=== PATIENT | male | born 1950 | race Caucasian/White ===

== ENCOUNTER 2019-12-04 15:27 | Observation (INO) | payer MEDICARE, SELFPAY ==
[2019-12-04 15:35] VITALS: BP 141/68; PULSE 74; RESP 18; TEMP 37; O2SAT 97; BMI 21.2
[2019-12-04 16:08] LABS: Add Manual Diff / Slide Review NO; Basophils Absolute Auto 0 /uL (0-100); Basophils Percent Auto 0.3 % (0-2); Eosinophils Absolute Auto 0 /uL (0-450); Hematocrit 46.4 % (41-53); Lymphocytes Absolute Auto 700 /uL (1100-4500); Lymphocytes Percent Auto 4.9 % (25-40); Mean Corpuscular HGB Conc 34.4 % (30-36); Mean Corpuscular Volume 92.8 fL (80-100); Monocytes Absolute Auto 900 /uL (0-900); Monocytes Percent Auto 6.5 % (3-14); Neutrophils Absolute Auto 12000 /uL (1500-7000); Neutrophils Percent Auto 88.3 % (50-75); Platelet Count 193 X10^3/uL (150-400); Red Cell Distribution Width 13.8 % (11.6-14.8); White Blood Cell Count 13.6 X10^3/uL (4.5-11.0)
[2019-12-04 16:14] LABS: Prothrombin Time 11.4 SECONDS (10.1-12.7)
[2019-12-04 16:17] LABS: PTT Partial Thromboplastin Tim 29 SECONDS (26.4-36.2)
[2019-12-04 16:20] LABS: Alanine Aminotransferase 25 IU/L (<50); Albumin 4.8 g/dL (3.5-5.0); Albumin Globulin Ratio 1.6 (1.0-2.8); Alkaline Phosphatase 58 U/L (38-126); Aspartate Aminotransferase 31 IU/L (17-59); BUN Creatinine Ratio 20.6 (6-22); Bilirubin Total 1.3 mg/dL (0.2-1.3); Blood Urea Nitrogen 14 mg/dL (9-20); Calcium 10.3 mg/dL (8.4-10.2); Carbon Dioxide 23 mmol/L (22-32); Chloride 101 mmol/L (98-107); Estimated Glomerular Filt Rate > 60.0 mL/min (>60); Glucose 126 mg/dL (80-110); HEMOLYSIS < 15 (0-50); Lipase 47 U/L (23-300); Potassium 3.5 mmol/L (3.4-5.1); Sodium 134 mmol/L (137-145); Total Protein 7.8 g/dL (6.3-8.2)
--- NOTE | 2019-12-04 17:17 | ED.ABDPAIN ---
HPI - Abdominal Pain General Chief Complaint: Abdominal Pain Stated Complaint: abdominal pain, nausea Time Seen by Provider: 12/04/19 17:05 Source: patient Mode of arrival: Family Vehicle Limitations: no limitations History of Present Illness HPI narrative: Patient is a 69-year-old male who presents with abdominal pain and vomiting. It started last night while he was camping. He has had some cramping all across his abdomen which radiates around to his back. He has vomited 3 times he is no longer passing gas and has not had a bowel movement. Family members have eaten the same food and no one else is having symptoms is he denies any fever chills chest pain dizziness or lightheadedness. MD complaint: abdominal pain Onset (ago): day(s) Pain Consistency: constant Location: diffuse Severity: mild Quality: cramping Radiation: none Migration to: no migration Related Data Allergies Allergy/AdvReac Type Severity Reaction Status Date / Time No Known Drug Allergies Allergy Verified 12/04/19 15:51 Review of Systems Review of Systems Narrative: GENERAL: Denies chills, fatigue, malaise, fever, sweats, travel HEENT: Denies sinus pain, ear pain, sore throat, difficulty swallowing, neck pain RESPIRATORY: Denies dyspnea, cough, wheezing, hemoptysis, sputum. CARDIOVASCULAR: Denies chest pain, palpitations, orthopnea, edema GASTROINTESTINAL: See HPI : Denies dysuria, frequency, incontinence, hematuria, urinary retention, flank pain. MUSCULOSKELETAL: Denies weakness, joint pain, or bony pain SKIN: No rash, no erythema, no pruritus NEUROLOGIC: Denies weakness, dizziness, headache, numbness, change in speech, confusion PSYCHIATRIC: No concerning psychosocial issues. 12 point review of systems is negative except for those stated above and HPI Patient History Social History Smoking Status: Never smoker Smoking Status: Never smoker alcohol intake frequency: 0-2 drinks per day Substance Use Type: does not use Exam Initial Vital Signs Initial Vital Signs: Vital Signs Temperature 98.6 F 12/04/19 15:35 Pulse Rate 74 12/04/19 15:35 Respiratory Rate 18 12/04/19 15:35 Blood Pressure 141/68 H 12/04/19 15:35 Pulse Oximetry 97 12/04/19 15:35 GENERAL: Well-appearing, well-nourished and in no acute distress. HEENT: Head atraumatic,EOMI, pupils reactive, face symmetric, moist mucous membranes CARDIOVASCULAR: Regular rate and rhythm without murmurs, rubs or gallops. RESPIRATORY: Breath sounds equal bilaterally, no wheezes rales or rhonchi. ABDOMEN: Soft, diffusely tender no localization decreased bowel sounds. No guarding or rebound. EXTREMITIES: Normal range of motion, no clubbing or edema. Neurovascularly intact NEUROLOGICAL: Alert and oriented x4.Normal gait and speech. SKIN: Warm, dry, no laceration, no petechiae, no rashes or lesions. Course Orders Ordered: ED Orders 12/04/19 15:52 EKG-12 Lead Stat 12/04/19 15:55 Complete Blood Count AUTO DIFF Stat Comprehensive Metabolic Panel Stat Lipase Stat Partial Thromboplastin Time Stat Prothrombin Time INR Stat 12/04/19 17:17 CT abdomen pelvis w con Stat Discontinued Medications Sodium Chloride (Normal Saline 0.9%) 1,000 mls @ 1,000 mls/hr IV BOLUS ONE Stop: 12/04/19 18:16 Last Admin: 12/04/19 17:41 Dose: 1,000 mls/hr Documented by: SURENDRA Ondansetron HCl (Zofran) 4 mg IV NOW ONE Stop: 12/04/19 17:18 Last Admin: 12/04/19 17:41 Dose: 4 mg Documented by: SURENDRA Vital Signs Vital signs: Vital Signs - 8 hr 12/04/19 15:35 Temperature 98.6 F Pulse Rate 74 Respiratory Rate 18 Blood Pressure 141/68 H Pulse Oximetry 97 MDM - Abdominal Pain Lab Data Attestation: I reviewed the patient's lab results. Result diagrams: 12/04/19 15:55 12/04/19 15:55 Labs: Lab Results 12/04/19 12/04/19 12/04/19 Range/Units 15:55 15:55 15:55 WBC 13.6 H (4.5-11.0) X10^3/uL RBC 5.00 (4.5-5.9) X10^6/uL Hgb 16.0 (13.5-17.5) g/dL Hct 46.4 (41-53) % MCV 92.8 (80-100) fL MCH 32.0 (26-34) PG MCHC 34.4 (30-36) % RDW 13.8 (11.6-14.8) % Plt Count 193 (150-400) X10^3/uL Neut % (Auto) 88.3 H (50-75) % Lymph % (Auto) 4.9 L (25-40) % [place] % (Auto) 6.5 (3-14) % Eos % (Auto) 0.0 L (2-4) % Baso % (Auto) 0.3 (0-2) % Neut # (Auto) 36981 H (0489-1714) /uL Lymph # (Auto) 700 L (2976-7199) /uL [place] # (Auto) 900 (0-900) /uL Eos # (Auto) 0 (0-450) /uL Baso # (Auto) 0 (0-100) /uL PT 11.4 (10.1-12.7) SECONDS INR 1.0 (0.9-1.3) APTT 29 (26.4-36.2) SECONDS Sodium 134 L (137-145) mmol/L Potassium 3.5 (3.4-5.1) mmol/L Chloride 101 (98-107) mmol/L Carbon Dioxide 23 (22-32) mmol/L BUN 14 (9-20) mg/dL Creatinine 0.68 (0.66-1.25) mg/dL Estimated GFR > 60.0 (>60) mL/min BUN/Creatinine Ratio 20.6 (6-22) Glucose 126 H (80-110) mg/dL Calcium 10.3 H (8.4-10.2) mg/dL Total Bilirubin 1.3 (0.2-1.3) mg/dL AST 31 (17-59) IU/L ALT 25 (<50) IU/L Alkaline Phosphatase 58 (38-126) U/L Total Protein 7.8 (6.3-8.2) g/dL Albumin 4.8 (3.5-5.0) g/dL Globulin 3.0 (1.7-4.1) g/dL Albumin/Globulin Ratio 1.6 (1.0-2.8) Lipase 47 (23-300) U/L Imaging Data CT scan - abdomen/pelvis: Radiologist's Impression: PROCEDURE: CT ABDOMEN PELVIS W CON INDICATIONS: ab pain with nausea TECHNIQUE: After the administration of intravenous contrast, 5 mm thick sections acquired from the diaphragm to the symphysis. 5 mm coronal and sagittal reformats were acquired. For radiation dose reduction, the following was used: automated exposure control, adjustment of mA and/or kV according to patient size. COMPARISON: None. FINDINGS: Image quality: There is streak artifact seen through the pelvis. ABDOMEN: Lung bases: Lung bases are clear. Heart size is normal. Solid organs: Liver is normal in size and enhancement. Gallbladder wall is not thickened. Biliary system is non dilated. Pancreas enhances normally. Spleen is normal in size and enhancement. No adrenal nodules. Kidneys demonstrate normal size and enhancement, without hydronephrosis. Peritoneum and bowel: Prominently dilated loops of fluid-filled small bowel are seen. The distal 10-20 cm of the small bowel appear relatively decompressed. The distal small bowel demonstrates wall thickening and hyper enhancement. There is apparent transition point seen within the right lower quadrant as on series 2, image 70 and on series 4, image 18 and on series 5, image 35. There is moderate free fluid seen layering within the pelvis. No free air or loculated fluid collection can be seen. Relatively prominent fluid can be seen within the proximal colon. Nodes and vessels: No retroperitoneal or mesenteric adenopathy by size criteria. Aorta and inferior vena cava are normal in size. Miscellaneous: No ventral hernias. PELVIS: Genitourinary: Bladder wall thickness is normal. Miscellaneous: No inguinal hernias or adenopathy. Bones: No suspicious bony lesions. No vertebral body compression fractures. Lower lumbar spine degenerative changes are seen. Milder degenerative changes are seen elsewhere. IMPRESSION: These imaging findings are most compatible with small bowel obstruction, with a transition point seen involving the distal small bowel within the right lower quadrant. Moderate free fluid is seen layering within the pelvis. No loculated abscess is seen. Dictated by: Ulysses Keller M.D. on 12/04/2019 at 16:52 Approved by: Ulysses Keller M.D. on 12/04/2019 at 16:58 ECG Data Attestation: I personally reviewed and interpreted this ECG as follows: Prior ECG tracings: not available for review Interpretation: Normal sinus rhythm rate 81 p.r. interval 184 QRS [address] changes no priors to compare MDM Narrative Medical decision making narrative: Patient is found to have a bowel obstruction on CT with a transition point. He is hemodynamically stable and appears comfortable and well. Dr. Diaz, surgery notified agrees with observation and NG tube Discharge Plan Departure Patient Disposition: Admitted as Observation Clinical Impression: Complete small bowel obstruction Admit Date/Time: 12/04/19 18:28 Admit Provider: Ginna Diaz
[2019-12-04] MEDS: ONDANSETRON 4 MG/2 ML INJ IV ×2 (17:41→18:59)
[2019-12-04] MEDS: SODIUM CHLORIDE 0.9% 1,000 ML 1000 ML IV (17:41)
--- NOTE | 2019-12-04 19:13 | PM.HP.1 ---
History of Present Illness History of Present Illness Date Patient Seen: 12/04/19 Time Patient Seen: 19:13 Chief complaint: abdominal pain, nausea Narrative: This is a 69 yo man with history of open prostatectomy in 2016, laparoscopic bilateral inguinal hernia repairs two years ago, complicated by a bladder injury which resolved with hernández catheter. He was camping with his family, and started having abdominal pain and nausea last night around 10PM. Today his pain got worse, and he vomited three times. He came into the ER where he had labs and a CT scan, which revealed an SBO. NGT was placed, with minimal serosanguinous output. His last BM or flatus was some time yesterday. He denies any significant medical history. He says he does not take any medications other than vitamins. He denies smoking, drinking, or using any illicit drugs. He denies any significant family history of gastrointestinal disorders, hypertension, or diabetes. He has had a prior colonoscopy, he says he is due for 1 now. ROS: GENERAL: Denies chills, fatigue, malaise, fever, sweats, travel HEENT: Denies sinus pain, ear pain, sore throat, difficulty swallowing, neck pain RESPIRATORY: Denies dyspnea, cough, wheezing, hemoptysis, sputum. CARDIOVASCULAR: Denies chest pain, palpitations, orthopnea, edema GASTROINTESTINAL: See HPI : Denies dysuria, frequency, incontinence, hematuria, urinary retention, flank pain. MUSCULOSKELETAL: Denies weakness, joint pain, or bony pain SKIN: No rash, no erythema, no pruritus NEUROLOGIC: Denies weakness, dizziness, headache, numbness, change in speech, confusion PSYCHIATRIC: No concerning psychosocial issues. Thirteen system review is otherwise negative other than as mentioned below and in HPI. PE: GENERAL: Alert, mild distress from NG tube. Appears stated age. Answers questions promptly and appropriately. Vital signs noted. HENT: Normocephalic, atraumatic. Hearing intact. Oral mucosa is pink and moist. NG tube in place with scant serosanguineous output. EYES: Conjunctiva pink, sclera white, no periorbital swelling. CARDIOVASCULAR: Regular rate. No pedal edema. RESPIRATORY: Non-tachypneic, breathing comfortably on room air. GASTROINTESTINAL: Abdomen soft, Nondistended, mildly tender to palpation diffusely, well-healed lower midline prostatectomy incisional scar, well-healed infraumbilicallaparoscopic incisional scar GENITALURINARY: No flank tenderness. MUSCULOSKELETAL: Equal tone and mass bilaterally. SKIN: Warm, dry, soft, appropriate color for ethnicity. No other lesions, rashes, or wounds. NEURO: Alert and Oriented X 3. No gross sensory deficits, or cognitive issues. PSYCH: Appropriate affect and mood. Patient History Family & Social History Safety & Behavioral: Feels Safe in Current Yes Environment Been Physically Hurt or No Threatened By a Person Tobacco & Substance use: Smoking Status Never smoker alcohol intake frequency 0-2 drinks per day Substance Use Type does not use Meds Home Medications and Allergies Allergies Allergy/AdvReac Type Severity Reaction Status Date / Time No Known Drug Allergies Allergy Verified 12/04/19 15:51 Exam Vital Signs (past 8 hours): - 12/04/19 15:35 Temperature 98.6 F Pulse Rate 74 Respiratory Rate 18 Blood Pressure 141/68 H Pulse Oximetry 97 Oxygen Delivery Method Room Air Objective Imaging CT scan - abdomen: My impression: SBO, I do not see much fluid in the pelvis as described by the radiologist. Radiologist's impression: [place] [address] CT Scan Report Signed Patient: John Santiago JMR#: [id number] : 1Acct:[id number] Age/Sex: 69 / MDate of Service: 12/04/19 Loc: ED Accession Number: [id number] Procedure: CT abdomen pelvis w con Ordering Provider: Leslye Anderson D.O. PROCEDURE: CT ABDOMEN PELVIS W CON INDICATIONS: ab pain with nausea TECHNIQUE: After the administration of intravenous contrast, 5 mm thick sections acquired from the diaphragm to the symphysis. 5 mm coronal and sagittal reformats were acquired. For radiation dose reduction, the following was used: automated exposure control, adjustment of mA and/or kV according to patient size. COMPARISON: None. FINDINGS: Image quality: There is streak artifact seen through the pelvis. ABDOMEN: Lung bases: Lung bases are clear. Heart size is normal. Solid organs: Liver is normal in size and enhancement. Gallbladder wall is not thickened. Biliary system is non dilated. Pancreas enhances normally. Spleen is normal in size and enhancement. No adrenal nodules. Kidneys demonstrate normal size and enhancement, without hydronephrosis. Peritoneum and bowel: Prominently dilated loops of fluid-filled small bowel are seen. The distal 10-20 cm of the small bowel appear relatively decompressed. The distal small bowel demonstrates wall thickening and hyper enhancement. There is apparent transition point seen within the right lower quadrant as on series 2, image 70 and on series 4, image 18 and on series 5, image 35. There is moderate free fluid seen layering within the pelvis. No free air or loculated fluid collection can be seen. Relatively prominent fluid can be seen within the proximal colon. Nodes and vessels: No retroperitoneal or mesenteric adenopathy by size criteria. Aorta and inferior vena cava are normal in size. Miscellaneous: No ventral hernias. PELVIS: Genitourinary: Bladder wall thickness is normal. Miscellaneous: No inguinal hernias or adenopathy. Bones: No suspicious bony lesions. No vertebral body compression fractures. Lower lumbar spine degenerative changes are seen. Milder degenerative changes are seen elsewhere. IMPRESSION: These imaging findings are most compatible with small bowel obstruction, with a transition point seen involving the distal small bowel within the right lower quadrant. Moderate free fluid is seen layering within the pelvis. No loculated abscess is seen. Dictated by: Ulysses Keller M.D. on 12/04/2019 at 16:52 Approved by: Ulysses Keller M.D. on 12/04/2019 at 16:58 Labs Result Diagrams: 12/04/19 15:55 12/04/19 15:55 Labs: Laboratory Results - last 24 hr 12/04/19 12/04/19 12/04/19 15:55 15:55 15:55 WBC 13.6 H RBC 5.00 Hgb 16.0 Hct 46.4 MCV 92.8 MCH 32.0 MCHC 34.4 RDW 13.8 Plt Count 193 Neut % (Auto) 88.3 H Lymph % (Auto) 4.9 L [place] % (Auto) 6.5 Eos % (Auto) 0.0 L Baso % (Auto) 0.3 Neut # (Auto) 82369 H Lymph # (Auto) 700 L [place] # (Auto) 900 Eos # (Auto) 0 Baso # (Auto) 0 PT 11.4 INR 1.0 APTT 29 Sodium 134 L Potassium 3.5 Chloride 101 Carbon Dioxide 23 BUN 14 Creatinine 0.68 Estimated GFR > 60.0 BUN/Creatinine Ratio 20.6 Glucose 126 H Calcium 10.3 H Total Bilirubin 1.3 AST 31 ALT 25 Alkaline Phosphatase 58 Total Protein 7.8 Albumin 4.8 Globulin 3.0 Albumin/Globulin Ratio 1.6 Lipase 47 Assessment & Plan Assessment and plan (1) SBO (small bowel obstruction): Status: Acute (2) Leukocytosis: Status: Acute Assessment & Plan narrative: This is a 69-year-old man with history, exam, and CT scan consistent with an adhesive small-bowel obstruction. An NG tube has been placed, without much output. I discussed with the patient the plan for his care which is to attempt to resolve his bowel obstruction nonsurgically. We will keep the NG tube to low intermittent suction, give him IV fluids, correct his electrolytes, and attempt a small-bowel follow-through when appropriate. Quality VTE Deep Vein Thrombosis/Pulmonary Embolism Present on Admission: No
--- NOTE | 2019-12-04 19:28 | DI.RAD.S_ITS ---
PROCEDURE: XR CHEST 1V INDICATIONS: NGT tube placement, check position TECHNIQUE: One view of the chest was acquired. COMPARISON: [facility], CT, CT ABDOMEN PELVIS W CON, 12/04/2019, 17:18. FINDINGS: Surgical changes and devices: NG tube tip projects to stomach Lungs and pleura: Lungs are clear. No pleural effusions or pneumothorax. Mediastinum: Mediastinal contours appear normal. Heart size is normal. Bones and chest wall: No suspicious bony lesions. Overlying soft tissues appear unremarkable. IMPRESSION: NG tube tip projects to the stomach. Dictated by: Simone Haro M.D. on 12/04/2019 at 20:09 Approved by: Simone Haro M.D. on 12/04/2019 at 20:10
[2019-12-04 20:00] VITALS: BP 161/81; PULSE 82; RESP 15; O2SAT 95
[2019-12-04 20:16] LABS: COVID19 -Nasal RAPID Negative (Negative)
[2019-12-04 20:30] VITALS: BP 149/79; PULSE 78; RESP 17; TEMP 37.8; O2SAT 99
[2019-12-04 21:03] VITALS: BMI 21.8
[2019-12-04] MEDS: PANTOPRAZOLE 40 MG VIAL 20 MG IV (21:29)
[2019-12-04] MEDS: SODIUM CHLORIDE 0.9% 1,000 ML 125 ML IV (21:30)
--- NOTE | 2019-12-04 21:42 | PC.NURSE ---
2100- Alert cooperative Man admitted to room 224. Patient NGT hooked up to LIS per order. Low grade temperature upon admit. Patient may have ice chips only. Room air saturation is 99%, IVF infusing per order. Patient oriented to room, advised to call for assist. Will monitor.
[2019-12-04 23:58] VITALS: BP 136/64; PULSE 83; RESP 16; TEMP 37.6; O2SAT 97
--- NOTE | 2019-12-05 | DI.RAD.S_ITS ---
PROCEDURE: FL SMALL BOWEL FOLLOW THROUGH INDICATIONS: SBFT times exams COMPARISON: None. FINDINGS: KUB: Preprocedural auto damage trainee film demonstrates a normal bowel gas pattern. No suspicious abdominal calcifications. Visualized solid organ contours appear normal. No suspicious bony abnormalities. Small bowel: Contrast is visualized throughout the bowel to the level of the rectosigmoid 3 hours. Small bowel loops are of normal caliber throughout. Mucosal folds are smooth and of normal thickness. No strictures, intraluminal masses, or extrinsic mass effects are noted. The terminal ileum is identified, and is normal in morphology. IMPRESSION: No findings to suggest ileus or obstruction. No radiographic evidence for mucosal thickening. Transit time approximately 3 hours. Dictated by: Judy Grant M.D. on 12/05/2019 at 15:39 Approved by: Judy Grant M.D. on 12/05/2019 at 15:40
[2019-12-05 03:47] VITALS: BP 132/79; PULSE 85; RESP 16; TEMP 37; O2SAT 97
[2019-12-05 05:06] LABS: Add Manual Diff / Slide Review NO; Basophils Absolute Auto 0 /uL (0-100); Basophils Percent Auto 0.2 % (0-2); Eosinophils Absolute Auto 0 /uL (0-450); Eosinophils Percent Auto 0.1 % (2-4); Hematocrit 47.1 % (41-53); Hemoglobin 15.6 g/dL (13.5-17.5); Lymphocytes Absolute Auto 900 /uL (1100-4500); Lymphocytes Percent Auto 7.9 % (25-40); Mean Corpuscular HGB Conc 33.2 % (30-36); Mean Corpuscular Hemoglobin 31.4 PG (26-34); Mean Corpuscular Volume 94.6 fL (80-100); Monocytes Absolute Auto 1100 /uL (0-900); Monocytes Percent Auto 8.9 % (3-14); Neutrophils Absolute Auto 9800 /uL (1500-7000); Neutrophils Percent Auto 82.9 % (50-75); Platelet Count 189 X10^3/uL (150-400); Red Blood Cell Count 4.97 X10^6/uL (4.5-5.9); Red Cell Distribution Width 13.9 % (11.6-14.8); White Blood Cell Count 11.9 X10^3/uL (4.5-11.0)
[2019-12-05 05:12] LABS: BUN Creatinine Ratio 16.3 (6-22); Blood Urea Nitrogen 15 mg/dL (9-20); Calcium 8.6 mg/dL (8.4-10.2); Carbon Dioxide 25 mmol/L (22-32); Chloride 104 mmol/L (98-107); Estimated Glomerular Filt Rate > 60.0 mL/min (>60); Glucose 121 mg/dL (80-110); HEMOLYSIS < 15 (0-50); Potassium 4.4 mmol/L (3.4-5.1); Sodium 135 mmol/L (137-145)
[2019-12-05] MEDS: SODIUM CHLORIDE 0.9% 1,000 ML 125 ML IV ×3 (05:17→23:57)
[2019-12-05 08:00] VITALS: BP 121/74; PULSE 91; RESP 18; TEMP 37.4; O2SAT 96
[2019-12-05] MEDS: ENOXAPARIN 40 MG/0.4 ML SYRINGE SUBCUT (08:25)
[2019-12-05] MEDS: PANTOPRAZOLE 40 MG VIAL 20 MG IV ×2 (08:26→20:37)
[2019-12-05] MEDS: ONDANSETRON 4 MG/2 ML INJ IV (09:45)
[2019-12-05] MEDS: MORPHINE 2 MG/ML INJ IV (09:45)
--- NOTE | 2019-12-05 10:37 | CM.DANOTE ---
DCP: Case received, EMR reviewed and met with patient. Introduced self and role. Was able to meet with patient and obtain information regarding his baseline activity level prior to hospitalization. DCP assessment completed with information currently available. Patient is a 69 year old male who admitted yesterday afternoon to the care of the hospitalist team. PCP: Dr. Gonzalez, [facility]. Payer: confirmed: [facility] Medicare Advantage. Patient came to the hospital via family vehicle secondary to abdominal pain and nausea. He holds current diagnosis of small bowel obstruction. He currently has NG tube. Met with patient in his room. He was sitting up in bed, alert and oriented. He resides in [place] with his , and they were up here camping at [facility]. Stated that he started having abdominal pain, and was difficult to sleep. Stated that his daughter drove her here. He is independent as far as functioning, drives, and is retired. P: DCP to continue to follow. Patient should be able to go home when he is medically stable. Adriana Chapa RN/Template Inspector
--- NOTE | 2019-12-05 11:18 | P.PN_ITS ---
Subjective Subjective Date Patient Seen: 12/05/19 Interval history: No acute overnight events. Started a small-bowel follow- through study this morning Exam Vital Signs (past 8 hours): - 12/05/19 03:47 12/05/19 08:00 Temperature 98.6 F 99.3 F Pulse Rate 85 91 H Respiratory Rate 16 18 Blood Pressure 132/79 121/74 Pulse Oximetry 97 96 Oxygen Delivery Method Room Air Oxygen Flow Rate 0 Narrative Exam Narrative: General adult male alert oriented no acute distress Abdomen soft mildly distended nontender Objective Labs Result Diagrams: 12/05/19 04:40 12/05/19 04:40 Labs: Laboratory Results - last 24 hr 12/04/19 12/04/19 12/04/19 15:55 15:55 15:55 WBC 13.6 H RBC 5.00 Hgb 16.0 Hct 46.4 MCV 92.8 MCH 32.0 MCHC 34.4 RDW 13.8 Plt Count 193 Neut % (Auto) 88.3 H Lymph % (Auto) 4.9 L [place] % (Auto) 6.5 Eos % (Auto) 0.0 L Baso % (Auto) 0.3 Neut # (Auto) 84291 H Lymph # (Auto) 700 L [place] # (Auto) 900 Eos # (Auto) 0 Baso # (Auto) 0 PT 11.4 INR 1.0 APTT 29 Sodium 134 L Potassium 3.5 Chloride 101 Carbon Dioxide 23 BUN 14 Creatinine 0.68 Estimated GFR > 60.0 BUN/Creatinine Ratio 20.6 Glucose 126 H Calcium 10.3 H Magnesium Total Bilirubin 1.3 AST 31 ALT 25 Alkaline Phosphatase 58 Total Protein 7.8 Albumin 4.8 Globulin 3.0 Albumin/Globulin Ratio 1.6 Lipase 47 COVID-19 PCR 12/04/19 12/05/19 12/05/19 19:15 04:40 04:40 WBC 11.9 H RBC 4.97 Hgb 15.6 Hct 47.1 MCV 94.6 MCH 31.4 MCHC 33.2 RDW 13.9 Plt Count 189 Neut % (Auto) 82.9 H Lymph % (Auto) 7.9 L [place] % (Auto) 8.9 Eos % (Auto) 0.1 L Baso % (Auto) 0.2 Neut # (Auto) 9800 H Lymph # (Auto) 900 L [place] # (Auto) 1100 H Eos # (Auto) 0 Baso # (Auto) 0 PT INR APTT Sodium 135 L Potassium 4.4 Chloride 104 Carbon Dioxide 25 BUN 15 Creatinine 0.92 Estimated GFR > 60.0 BUN/Creatinine Ratio 16.3 Glucose 121 H Calcium 8.6 Magnesium 2.0 Total Bilirubin AST ALT Alkaline Phosphatase Total Protein Albumin Globulin Albumin/Globulin Ratio Lipase COVID-19 PCR Negative Assessment & Plan Assessment & Plan narrative: 69-year-old male previous abdominal surgery here with a small-bowel obstruction. Nasogastric tube is in place undergoing a smal l-bowel follow-through currently. -continue NG tube -await results of small-bowel follow-through. -Lovenox and SCDs for VT prophylaxis Quality VTE Deep Vein Thrombosis/Pulmonary Embolism Present on Admission: No
--- NOTE | 2019-12-05 11:45 | PC.NURSE ---
GI: BT's are active but no bm or flatus this am, then went for a SBFT, after return from x-ray and getting contrast pt had a 300ml emesis, and received a dose of zofran and morphine. Had a very large bm and stool was very soft. Nausea resolved and and cramping went away. Then down for 2 more x-rays and tolerated both of those without problems. Resting. Hopes he can get ngt out, it is his only complaint.
[2019-12-05 12:01] VITALS: BP 121/62; PULSE 72; RESP 16; TEMP 37; O2SAT 99
[2019-12-05 15:18] VITALS: BP 133/63; PULSE 70; RESP 17; TEMP 37.3; O2SAT 99
--- NOTE | 2019-12-05 17:28 | PC.NURSE ---
Evening shift note: Pt sitting up in bed, A/Ox4. Introduced myself and assessed pt, VSS. Pt no longer has an NG tube placed, discontinued during day shift, bowel sounds are active, pt is tolerating clear liquids at this time and looking forward to dinner. Pt notes that he had a large BM today and has been passing flatus. IV fluids infusing as ordered, pt states that he is feeling much better and looking forward to discharging possibly tomorrow? Bed is low and locked, call light is within reach, will continue to monitor.
[2019-12-05 19:00] VITALS: BP 134/62; PULSE 69; RESP 16; TEMP 37.2; O2SAT 99
[2019-12-06] VITALS: BP 113/66; PULSE 74; RESP 18; TEMP 37; O2SAT 94
[2019-12-06 04:00] VITALS: BP 109/54; PULSE 72; RESP 18; TEMP 37; O2SAT 95
[2019-12-06 05:07] LABS: Add Manual Diff / Slide Review NO; Basophils Absolute Auto 0 /uL (0-100); Basophils Percent Auto 0.4 % (0-2); Eosinophils Absolute Auto 0 /uL (0-450); Eosinophils Percent Auto 0.6 % (2-4); Hematocrit 38.6 % (41-53); Hemoglobin 12.9 g/dL (13.5-17.5); Lymphocytes Absolute Auto 1100 /uL (1100-4500); Lymphocytes Percent Auto 15.8 % (25-40); Mean Corpuscular HGB Conc 33.5 % (30-36); Mean Corpuscular Hemoglobin 31.9 PG (26-34); Mean Corpuscular Volume 95.4 fL (80-100); Monocytes Absolute Auto 700 /uL (0-900); Monocytes Percent Auto 10.3 % (3-14); Neutrophils Absolute Auto 5200 /uL (1500-7000); Neutrophils Percent Auto 72.9 % (50-75); Platelet Count 129 X10^3/uL (150-400); Red Blood Cell Count 4.04 X10^6/uL (4.5-5.9); Red Cell Distribution Width 13.9 % (11.6-14.8); White Blood Cell Count 7.1 X10^3/uL (4.5-11.0)
[2019-12-06 05:14] LABS: BUN Creatinine Ratio 19.3 (6-22); Blood Urea Nitrogen 17 mg/dL (9-20); Carbon Dioxide 27 mmol/L (22-32); Chloride 109 mmol/L (98-107); Estimated Glomerular Filt Rate > 60.0 mL/min (>60); Glucose 98 mg/dL (80-110); HEMOLYSIS < 15 (0-50); Magnesium 2.3 mg/dL (1.6-2.3); Sodium 137 mmol/L (137-145)
--- NOTE | 2019-12-06 06:17 | PC.NURSE ---
Manager Pathology Note-Patient slept throughout night, no c/o nausea or abdominal pain. Had 1 small BM, passing flatus, tolerating clear liquid diet.
[2019-12-06 08:00] VITALS: BP 106/56; PULSE 76; RESP 17; TEMP 37; O2SAT 95
[2019-12-06] MEDS: PANTOPRAZOLE 40 MG VIAL 20 MG IV (08:39)
[2019-12-06] MEDS: ENOXAPARIN 40 MG/0.4 ML SYRINGE SUBCUT (08:39)
[2019-12-06] MEDS: SODIUM CHLORIDE 0.9% 1,000 ML 125 ML IV (08:42)
--- NOTE | 2019-12-06 09:26 | PM.DS.1 ---
History of Present Illness History of Present Illness Date Patient Seen: 12/06/19 Time Patient Seen: 09:26 Chief complaint: abdominal pain, nausea Narrative: 69-year-old man with a history of abdominal surgery presents with nausea vomiting and obstipation. He was found have a small-bowel obstruction on a CT abdomen pelvis. He is afebrile and without leukocytosis on admission. Discharge Providers Provider Date of admission: 12/04/19 18:28 Discharge Date: 12/06/19 Discharge provider: Enrique Germain MD Summary Hospital Course Discharge Diagnosis: Small-bowel obstruction Hospital Course: He was managed for his small-bowel obstruction conservatively. Nasogastric tube was placed he received a small-bowel follow-through with Gastrografin. This resulted in resolution of his obstruction and his diet was gradually advanced. On the date of discharge 12/05 he is tolerating regular diet without abdominal pain is resolved has flatus and bowel movement and is ambulatory. Status at Discharge Cognitive/behavioral status at discharge: oriented Exam Vital Signs (past 8 hours): - 12/06/19 04:00 12/06/19 08:00 Temperature 98.6 F 98.6 F Pulse Rate 72 76 Respiratory Rate 18 17 Blood Pressure 109/54 L 106/56 L Pulse Oximetry 95 95 Oxygen Delivery Method Room Air Oxygen Flow Rate 0 Narrative Exam Narrative: General adult male alert oriented no acute distress Abdomen soft nontender nondistended Objective Labs Result Diagrams: 12/06/19 04:35 12/06/19 04:35 Labs: Laboratory Results - last 24 hr 12/06/19 12/06/19 04:35 04:35 WBC 7.1 RBC 4.04 L Hgb 12.9 L Hct 38.6 L MCV 95.4 MCH 31.9 MCHC 33.5 RDW 13.9 Plt Count 129 L Neut % (Auto) 72.9 Lymph % (Auto) 15.8 L [place] % (Auto) 10.3 Eos % (Auto) 0.6 L Baso % (Auto) 0.4 Neut # (Auto) 5200 Lymph # (Auto) 1100 [place] # (Auto) 700 Eos # (Auto) 0 Baso # (Auto) 0 Sodium 137 Potassium 4.0 Chloride 109 H Carbon Dioxide 27 BUN 17 Creatinine 0.88 Estimated GFR > 60.0 BUN/Creatinine Ratio 19.3 Glucose 98 Calcium 8.0 L Magnesium 2.3 Discharge Plan Discharge Plan Patient Disposition: Home Discharge orders & Medications Prescriptions: No Action No Known Home Medications RF: 0 Diet/Activity/Treatments Diet: Regular Skin/Wound/Dressing Care Report to your healthcare provider any signs of infection, such as:: increased pain Visit Report/Discharge Packet Instructions: DI for Small Bowel Obstruction Visit Report Forms: Patient Portal/API, Stroke Signs & Symptoms Discharge Data Attending Provider: Ginna Diaz Admit Date/Time: 12/04/19 18:28 Quality VTE Deep Vein Thrombosis/Pulmonary Embolism Present on Admission: No
== END 2019-12-06 12:40 | disposition home or self-care (01) | DRG 390 ==
LOC: ED 17:05 → AC 18:41
PROVIDERS: Admitting Provider Surgery; Emergency Provider Emergency Medicine; Referring Provider Emergency Medicine; Visit Provider Surgery
DX: K56.609 Unspecified intestinal obstruction, unspecified as to partial versus complete obstruction (principal); D72.829 Elevated white blood cell count, unspecified; Z03.818 Encounter for observation for suspected exposure to other biological agents ruled out
CPT/HCPCS: 36415; 71045; 74177; 74250; 80048; 80053; 83690; 83735; 85025; 85610; 85730; 87635; 93005; 93010; 96361; 96374; 96376; 99221; 99231; 99238; 99285; G0378; C9113; J1650; J2270; J2405